=== PATIENT | male | born 1930 | race Caucasian/White ===

== ENCOUNTER 2018-04-13 05:29 | Day surgery (SDC) | payer OTHER ==
[~2018-04-13] VITALS: Ht 172.7 cm; Wt 65.8 kg
--- NOTE | ~2018-04-13 | O ---
[facility] [place] [address] OPERATIVE REPORT Name: ROSITA THORPE Room #: 150-2 [facility].#: [id number] Admission: 04/13/18 ������������������ Attend Phys: Doe Hernandez MD Discharge: ������������������ Date of : [birth year] Report #: [id number] THIS REPORT FOR: //name// CC: FAM unknown Doe Samano MD DATE OF SERVICE: 04/13/2018 PREOPERATIVE DIAGNOSES: Left visual disturbance, left temporal headache, rule out left temporal arteritis. POSTOPERATIVE DIAGNOSES: Left visual disturbance, left temporal headache, rule out left temporal arteritis. . PROCEDURE PERFORMED: Left temporal artery biopsy. ANESTHESIA: Local 0.25% Marcaine and 1% lidocaine. COMPLICATIONS: None. SURGEON: Doe Hernandez M.D. ESTIMATED BLOOD LOSS: 5 mL. PROCEDURE NOTE: The artery is palpable just anterior to the ear. Ultrasound was used to evaluate the rest of the course. The temporal artery seems to be running straight up rather than curving anteriorly. The temporal area was shaved, prepped and draped in sterile fashion. Timeout was performed. Local anesthetic was placed. This was placed in the skin and subcutaneous tissue. An incision was made along the course of the temporal artery vertically. This was made just in front of the left ear. After dissecting through the skin, subcutaneous tissue and the fascia covering and the tissue covering the artery, the artery was exposed. The artery was followed proximally. The artery was isolated with a vessel loop. The branch from the artery was clipped with small clips and then also cauterized. The artery was followed distally. The artery again is noted to go more straight up. I do not see any branches curving anteriorly. Once the artery dissected free, the distal end was clipped with 2 clips. The proximal end was also dissected free and clipped. Two clips were applied. The intervening artery was then removed. It was about a 5 cm low over 5 cm segment. This was put in formalin and sent to pathology. Irrigation was performed. No bleeding was identified. The subcutaneous layer was closed with 4-0 PDS. Skin was closed with 5-0 PDS running subcuticular fashion. Dermabond [facility] [address] [place] [address] OPERATIVE REPORT Name: ROSITA THORPE Room #: 150-2 [facility]..#: [id number] Admission: 04/13/18 ������������������ Attend Phys: Doe Hernandez MD Discharge: ������������������ Date of : [birth year] Report #: [id number] was applied. No dressing was applied over this area. The patient was taken back to preop. He tolerated the procedure well. ��������������������������������������������� ���������������������������������������� By: ��������������������������������������������� [id number] Doe Hernandez MD /nt
[~2018-04-13 05:29] MED LIST: ASPIR 8181 M1 PO; CALCIUM 500 +1 EAC5 PO; CARDIZEM CD120 MG PO; CENTRUM SILVER1 EAC2 PO; IRON325 PO; PREDNISONE 10 M10 MG PO; XARELTO15 MG PO; ZYRTEC10 M5 PO
[2018-04-13 06:45] VITALS: BP 141/74
[2018-04-13] MEDS ORDERED: NORCO 5-325 TA1 EACH PO (09:20)
--- NOTE | 2018-04-16 17:07 | PATH ---
[facility] [address] [place] [address] PATHOLOGY RPT PROCEDURE Name: CHILANGO THORPE Room #: DEP [facility] [place] M.R.#: [id number] ������������������ Admission: 04/13/18 ������������������ Date of : [birth year] Discharge: 04/13/18 Report #: [id number] Path Case #: [id number] [facility] Accession Number: [id number] . 01 Material submitted: . LEFT TEMPORAL ARTERY . 01 Clinical history: . Pain, left temporal . 02 Diagnosis: Artery, left temporal artery, biopsy: - Calcific sclerosis within the media. - Negative for arteritis or inflammation. (IUV/db; 04/16/2018) LBQ/04/16/2018 . 02 Electronically signed: . Ambika Kim MD, Pathologist NPI- [id number] . 01 Gross description: . The specimen is received in formalin, labeled "Chilango Thorpe, left temporal artery". Received is a tubular segment of vascular tissue measuring 6.0 cm in length by 0.1 cm in diameter. The specimen is submitted intact in cassette A1 to be sectioned at the embedding station. (CAA; 04/13/2018) QAC/QAC . 02 Pathologist provided ICD-10: I70.8 . 02 CPT . 096212 Specimen Comment: A courtesy copy of this report has been sent to Specimen Comment: [phone]. Specimen Comment: Report sent to Performed at: [address], [place] [id number] MD Harsha Mckeon MD Phone: [phone] Performed at: [address] [id number] MD Ambika Kim MD Phone: [phone]
== END 2018-04-13 09:48 | disposition home or self-care (01) ==
LOC: OR 05:29 → TBA 05:30 → OR 09:48
DX: I70.8 Atherosclerosis of other arteries (principal); G44.89 Other headache syndrome; H53.9 Unspecified visual disturbance; Z95.1 Presence of aortocoronary bypass graft; Z79.01 Long term (current) use of anticoagulants; Z95.2 Presence of prosthetic heart valve; Z79.82 Long term (current) use of aspirin; Z79.899 Other long term (current) drug therapy; Z98.890 Other specified postprocedural states
CPT/HCPCS: 50010; 50101; 50386; 50398; 54118; 56525; 56526